=== PATIENT | male | born 1960 | race Caucasian/White ===

== ENCOUNTER 2017-09-22 09:28 | Emergency (ER) | payer SELFPAY ==
--- NOTE | 2017-09-22 10:31 | ED.PDOC ---
History of Present Illness - General Chief Complaint: Fever Stated Complaint: fever, cough Time Seen by Provider: 09/22/17 10:30 Source: patient Exam Limitations: no limitations - History of Present Illness Initial Comments: Isaac Ocampo 56 y/o male stated that he had been having cough and congestion with body aches for the last 2 weeks which comes and go.Denies chronic medical problems.No sob,no chills. Timing/Duration: intermittent, other - 2 weeks Improving Factors: nothing Worsening Factors: nothing Associated Symptoms: other - see hpi Allergies/Adverse Reactions: Allergies Cephalexin [From Keflex] Allergy (Verified 09/22/17 10:08) Penicillin G Allergy (Verified 09/22/17 10:08) Review of Systems - Review of Systems Constitutional: States: no symptoms reported EENTM: States: see HPI, nose congestion Respiratory: States: see HPI, cough Cardiology: States: no symptoms reported Gastrointestinal/Abdominal: States: no symptoms reported All other Systems: Reviewed and Negative, No Change from Baseline Past Medical History (General) - Patient Medical History Hx of COPD: Yes Hx Gastroesophageal Reflux: Yes Surgical History: other - Vaccination History Hx Tetanus, Diphtheria Vaccination: No Hx Influenza Vaccination: No Hx Pneumococcal Vaccination: No - Social History Hx Tobacco Use: Yes Hx Alcohol Use: No Hx Substance Use: No Hx Substance Use Treatment: No Hx Depression: No - Female History Patient : No Family Medical History - Family History Mother Family History: Unknown Physical Exam - Physical Exam General Appearance: Alert, Comfortable, No apparent distress Eye Exam: bilateral normal Ears, Nose, Throat: hearing grossly normal, normal ENT inspection, nasal congestion Neck: non-tender, full range of motion, supple Respiratory: lungs clear, normal breath sounds, no respiratory distress Cardiovascular/Chest: normal peripheral pulses, regular rate, rhythm, no murmur Peripheral Pulses: radial,right: 2+, radial,left: 2+ Gastrointestinal/Abdominal: normal bowel sounds, non tender, soft, no organomegaly Extremity: non-tender, no pedal edema, no calf tenderness Neurologic: alert, normal mood/affect, oriented x 3 Skin Exam: normal color, warm/dry Progress - Progress Progress: 09/22/17 12:01 Flu Swab negative 09/22/17 12:01 Last Vital Signs Temp 97.0 F L 09/22/17 10:05 Pulse 74 01/22/18 10:05 Resp 18 09/22/17 10:05 BP 113/67 09/22/17 10:05 Pulse Ox 96 09/22/17 10:05 - EKG/XRAY/CT XRAY: chest - no acute abnormalities Departure - Departure Clinical Impression: Upper respiratory infection Qualifiers: URI type: unspecified URI Qualified Code(s): J06.9 - Acute upper respiratory infection, unspecified Time of Disposition: 12:04 Disposition: Discharge to Home or Self Care Condition: Good Departure Forms: ED Discharge - Pt. Copy, Patient Portal Self Enrollment Instructions: DI for Viral Upper Respiratory Infection -- Adult Additional Instructions: May take OVER THE COUNTER cough /cold medicines Aleve 1-2 tablets am/pm fo body aches;Increase oral fluid intake
--- NOTE | 2017-09-22 11:26 | RAD ---
EXAM DESCRIPTION: Chest,1 View CLINICAL HISTORY: cough COMPARISON: 18 April 2014 TECHNIQUE: AP portable chest FINDINGS: The lungs are clear. There is no infiltrate or effusion. The heart is normal size. IMPRESSION: Normal portable chest Electronically signed by: Juve Balderas MD 09/22/2017 11:25 AM [employer]
[2017-09-22 12:33] VITALS: BP 100/52; TEMP 96.5; O2SAT 99
== END 2017-09-22 12:25 | disposition home or self-care (01) ==
LOC: ER 09:28
DX: J06.9 Acute upper respiratory infection, unspecified (principal); J44.9 Chronic obstructive pulmonary disease, unspecified; Z87.891 Personal history of nicotine dependence

== ENCOUNTER 2018-07-14 15:52 | Emergency (ER) | payer OTHER ==
[2018-07-14] MEDS ORDERED: ASPIRIN TABLET 325 MG TAB ONE (16:18)
[2018-07-14] MEDS ORDERED: NITROGLYCERIN 0.4 MG 25 EA TAB SL ONE ×2 (16:18)
[2018-07-14] MEDS ORDERED: ASPIRIN TABLET 325 MG TAB PO ONE (16:18)
[2018-07-14] MEDS ORDERED: SODIUM CHLORIDE 0.9% (FLUSH) 10 ML SYG IV PRN (16:18)
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
[2018-07-14 16:47] VITALS: TEMP 97.8
--- NOTE | 2018-07-14 17:06 | RAD ---
EXAM DESCRIPTION: Chest,1 View CLINICAL HISTORY:57 years Male, chest pain Comparison: September 22, 2017 FINDINGS: No focal lung consolidation. No pleural effusion. No pneumothorax. Cardiac and mediastinal silhouette is unremarkable. No acute osseous abnormality. Soft tissues are unremarkable. IMPRESSION: No acute findings. No focal lung consolidation. Electronically signed by: Vlad Ferrera MD 07/14/2018 5:05 PM [employer]ES [employer] SERVICE REPRESENTATIVE
[2018-07-14] MEDS ORDERED: KETOROLAC TROMETHAMINE INJ 30 MG/ML VIAL IV ONE (19:00)
[2018-07-14 19:02] VITALS: BP 127/63; O2SAT 98
== END 2018-07-14 19:16 ==
LOC: ER 15:52
DX: R07.2 Precordial pain (principal); I45.10 Unspecified right bundle-branch block; I25.2 Old myocardial infarction; J44.9 Chronic obstructive pulmonary disease, unspecified; K21.9 Gastro-esophageal reflux disease without esophagitis; Z02.89 Encounter for other administrative examinations; Z87.891 Personal history of nicotine dependence; Z88.0 Allergy status to penicillin; Z88.1 Allergy status to other antibiotic agents
CPT/HCPCS: 36415; 71045; 80048; 82550; 82553; 83880; 84484; 85025; 85610; 85730; 93005; J1885; J2060